=== PATIENT | female | born 1970 | race Caucasian/White ===

== ENCOUNTER → 2022-11-24 11:50 | Outpatient (BNVA) | payer OTHER, SELFPAY | PROVIDERS: Visit Provider Nurse Practitioner Family | DX: H66.91 Otitis media, unspecified, right ear (principal); K04.7 Periapical abscess without sinus; R53.83 Other fatigue; J30.2 Other seasonal allergic rhinitis; Z13.220 Encounter for screening for lipoid disorders; F17.200 Nicotine dependence, unspecified, uncomplicated | CPT/HCPCS: 80053; 80061; 82607; 82746; 83550; 84443 ==